=== PATIENT | female | born 1995 | race Caucasian/White ===

== ENCOUNTER 2018-09-15 23:21 | Emergency (ER) | payer MEDICAID ==
[~2018-09-15] VITALS: Ht 165.1 cm; Wt 133.4 kg
[2018-09-15 23:25] VITALS: BP 127/72
--- NOTE | 2018-09-15 23:25 | NUR ---
TO BED # 03 AMBULATORY
--- NOTE | 2018-09-15 23:30 | NUR ---
23 YO F BIB SELF AND FAMILY PRESENTS TO ED C/O 11/25 RIGHT EAR PAIN X 2 DAYS. PT DENIES FEVER, N/V OR RECENT ILLNESS. PT AFEBRILE AT THIS TIME. -- PT AWAKE, ALERT, CALM, COOPERATIVE. ANSWERING QUESTIONS APPROPRIATELY. BEHAVIOR AGE APPROPRIATE. -- SKIN PINK, WARM, DRY. BREATHING EVEN, UNLABORED. PMH-- DENIES RX-- DENIES
[2018-09-15 23:44] VITALS: BP 128/66
--- NOTE | 2018-09-15 23:44 | NUR ---
DISCHARGE PAPERS GIVEN TO PT. STATES PAIN TOLLERABLE 05/26, AFEBRILE, VSS. RX OF AMOXICILLIN AND IBUPROFEN GIVEN. SIDE EFFECTS EXPLAINED. INSTRUCTED TO F/U WITH PCP AND WHEN TO RETURN TO ER. PT VERBALLIZED UNDERSTANDING OF DC INSTRUCITIONS. ALL QUESTIONS ANSWERED.
== END 2018-09-15 23:44 | disposition home or self-care (01) ==
LOC: MED 23:21
DX: H66.91 Otitis media, unspecified, right ear (principal)
CPT/HCPCS: 99283